=== PATIENT | female | born 1960 | race Caucasian/White ===

== ENCOUNTER → 2017-09-29 | Outpatient (CLI) | payer MEDICAID | LOC: MHCPAIN 14:05 | DX: G89.29 Other chronic pain (principal); M54.12 Radiculopathy, cervical region; M47.812 Spondylosis without myelopathy or radiculopathy, cervical region; R51 Headache; M54.81 Occipital neuralgia | CPT/HCPCS: G0463 ==

== ENCOUNTER → 2017-12-01 | Outpatient (CLI) | payer MEDICAID | LOC: MHCPAIN 10:33 | DX: G89.29 Other chronic pain (principal); M50.90 Cervical disc disorder, unspecified, unspecified cervical region; M54.12 Radiculopathy, cervical region; M54.81 Occipital neuralgia; R51 Headache | CPT/HCPCS: G0463 ==

== ENCOUNTER → 2017-12-16 | Outpatient (CLI) | payer MEDICAID | LOC: MHCPAIN 10:17 | DX: M54.12 Radiculopathy, cervical region (principal); M50.90 Cervical disc disorder, unspecified, unspecified cervical region ==

== ENCOUNTER → 2017-12-21 | Outpatient (CLI) | payer MEDICAID | LOC: MHCPAIN 11:00 | DX: G89.29 Other chronic pain (principal); M50.90 Cervical disc disorder, unspecified, unspecified cervical region; M54.81 Occipital neuralgia; R51 Headache | CPT/HCPCS: G0463 ==

== ENCOUNTER → 2018-03-23 | Outpatient (CLI) | payer MEDICAID | LOC: MHCPAIN 09:31 | DX: G89.29 Other chronic pain (principal); M54.81 Occipital neuralgia; M50.90 Cervical disc disorder, unspecified, unspecified cervical region; M54.12 Radiculopathy, cervical region; M79.10 Myalgia, unspecified site | CPT/HCPCS: G0463 ==

== ENCOUNTER → 2018-03-29 | Outpatient (CLI) | payer MEDICAID | LOC: MHCPAIN 09:22 | DX: M79.18 Myalgia, other site (principal) | CPT/HCPCS: J1040 ==

== ENCOUNTER 2018-10-31 10:00 | Outpatient (RCR) | payer MEDICAID | END 2018-11-10 13:00 | disposition home or self-care (01) | LOC: WSC 10:00 | DX: M54.5 Low back pain (principal) ==

== ENCOUNTER → 2019-08-23 | Outpatient (CLI) | payer MEDICAID | LOC: MHCPAIN 14:53 | DX: M47.817 Spondylosis without myelopathy or radiculopathy, lumbosacral region (principal); M54.2 Cervicalgia; M54.6 Pain in thoracic spine; M54.5 Low back pain; G89.29 Other chronic pain; M54.81 Occipital neuralgia | CPT/HCPCS: G0463 ==